=== PATIENT | female | born 2000 | race Caucasian/White ===

== ENCOUNTER 2023-08-20 12:03 | Outpatient (CLI) | payer OTHER, SELFPAY ==
[2023-08-20 12:16] LABS: Basophils Absolute Auto 0.03 K/mm3 (0.00-0.10); Basophils Percent Auto 0.5 % (0.0-1.0); Eosinophils Absolute Auto 0.07 K/mm3 (0.02-0.50); Eosinophils Percent Auto 1.2 % (1.0-6.0); Hematocrit 41.2 % (35.0-49.0); Hemoglobin 13.2 g/dL (12.0-15.0); Immature Granulocyte Absolute 0.01 K/mm3 (0.00-0.00); Immature Granulocyte Percent A 0.2 % (0.0-0.0); Lymphocytes Absolute Auto 2.19 K/mm3 (1.10-4.50); Mean Corpuscular Hemoglobin 29.8 pg (27.0-31.0); Mean Platelet Volume 10.2 fl (9.2-11.8); Monocytes Absolute Auto 0.47 K/mm3 (0.10-0.90); Monocytes Percent Auto 8.2 % (2.0-11.0); Neutrophils Percent Auto 51.9 % (50.0-70.0); Platelet Count Result 222 K/mm3 (150-420); Red Blood Count 4.43 M/mm3 (4.20-5.40); Red Cell Distribution Width 12.6 % (11.6-14.4); White Blood Count 5.8 K/mm3 (4.8-10.8)
[2023-08-20 12:58] LABS: Alanine Aminotransferase 22 U/L (14-59); Albumin Level 3.7 g/dL (3.4-5.0); Alkaline Phosphatase 54 U/L (46-116); Anion Gap 6 mmol/L (8-16); Aspartate Amino Transferase 16 U/L (15-37); Bilirubin,Total 0.3 mg/dL (0.00-1.00); Blood Urea Nitrogen 12 mg/dL (7-18); Calcium 8.9 mg/dL (8.5-10.1); Carbon Dioxide 31 mmol/L (21-32); Chloride 106 mmol/L (98-108); Estimated Glomerular Filt Rate > 60; Glucose 84 mg/dL (70-99); Lipase 26 U/L (16-77); Osmolality Calculated 294 mOsm/kg (285-295); Potassium 4.5 mmol/L (3.5-5.1); Sodium 143 mmol/L (136-145); Total Protein 6.9 g/dL (6.4-8.2)
[2023-08-20 13:01] LABS: CRP < 0.5 mg/dL (0.0-0.9)
== END 2023-08-20 12:04 | disposition home or self-care (01) ==
PROVIDERS: PCP Nurse Practitioner Family; Visit Provider Family Medicine
DX: R10.9 Unspecified abdominal pain (principal); R10.13 Epigastric pain
CPT/HCPCS: 36415; 80053; 83690; 85025; 86140

== ENCOUNTER 2025-01-29 10:30 | Outpatient (CLI) | payer OTHER, SELFPAY ==
[2025-01-29 10:50] LABS: Hematocrit 42.6 % (35.0-49.0); Hemoglobin 13.9 g/dL (12.0-15.0); Immature Granulocyte Percent A 0.3 % (0.0-0.0); Lymphocytes Absolute Auto 1.73 K/mm3 (1.10-4.50); Mean Corpuscular HGB Conc 32.6 g/dL (32-36); Mean Corpuscular Hemoglobin 29.5 pg (27.0-31.0); Mean Corpuscular Volume 90.4 fL (78.0-102.0); Nucleated Red Blood Cells Absolute Auto 0.00 K/mm3 (0.00-0.00); Nucleated Red Blood Cells Perc 0.0 % (0-0.0); Platelet Count Result 237 K/mm3 (150-420); Red Blood Count 4.71 M/mm3 (4.20-5.40); White Blood Count 6.9 K/mm3 (4.8-10.8)
--- OUTSIDE RECORDS SUMMARY | 2025-01-29 11:02 | XMS_ITS | Clinical Summary ---
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 Gender Identity Not on file Sexual Orientation Not on file Last Filed Vital Signs Vital Sign Reading Time Taken Comments Blood Pressure 130/85 03/16/2022 1:31 PM CDT Pulse 79 03/16/2022 1:31 PM CDT Temperature 37.3 C (99.1 F) 03/16/2022 1:31 PM CDT Respiratory Rate 18 03/16/2022 1:31 PM CDT Oxygen Saturation 99% 03/16/2022 1:31 PM CDT Inhaled Oxygen Concentration - - Weight 61.2 kg (135 lb) 03/16/2022 1:31 PM CDT Height 175.3 cm (5' 9) 03/16/2022 1:31 PM CDT Body Mass Index 19.94 03/16/2022 1:31 PM CDT Plan of Treatment Health Maintenance Due Date Last Done Comments CHLAMYDIA SCREENING (ANNUAL) 11-24 YEARS 2012 HPV VACCINES (1 - 3-dose series) 2016 DTAP/TDAP/TD VACCINES (1 - Tdap) 2020 HEPATITIS B VACCINES (1 of 3 - 19+ 3-dose series) 10/11 CERVICAL CANCER SCREENING 2022 HPV/Cotest (21-29) 2022 PAP SMEAR 2022 INFLUENZA VACCINE (#1) 2025 Insurance [facility] CHOICE PLUS
[2025-01-29 11:46] LABS: Alanine Aminotransferase 11 U/L (6-35); Albumin Level 4.7 g/dL (3.5-5.1); Alkaline Phosphatase 50 U/L (38-126); Anion Gap 6 mmol/L (4-12); Aspartate Amino Transferase 21 U/L (14-36); Bilirubin,Total 0.5 mg/dL (0.2-1.3); Blood Urea Nitrogen 13 mg/dL (7-17); Calcium 9.9 mg/dL (8.4-10.2); Carbon Dioxide 29 mmol/L (22-30); Chloride 105 mmol/L (98-107); Estimated Glomerular Filt Rate > 60; Glucose 88 mg/dL (65-110); Osmolality Calculated 289 mOsm/kg (285-295); Potassium 4.1 mmol/L (3.4-5.0); Sodium 140 mmol/L (137-145); Total Protein 7.6 g/dL (6.3-8.2)
[2025-01-29 12:16] LABS: Thyroid Stimulating Hormone Reflex 2.200 uIU/mL (0.465-4.68)
[2025-01-30 07:09] LABS: LH 0.9 mIU/mL (.)
[2025-01-30 10:09] LABS: FSH 0.9 mIU/mL (.)
== END 2025-01-29 10:31 | disposition home or self-care (01) ==
PROVIDERS: PCP Nurse Practitioner Family; Visit Provider Nurse Practitioner Family
DX: Z00.00 Encounter for general adult medical examination without abnormal findings (principal); Z78.9 Other specified health status; D24.9 Benign neoplasm of unspecified breast
CPT/HCPCS: 36415; 80053; 83001; 83002; 84443; 85025

== ENCOUNTER 2025-02-05 07:48 | Outpatient (CLI) | payer OTHER, SELFPAY ==
--- NOTE | ~2025-02-05 | US_ITS ---
US breast RT complete 02/05/2025 08:06 Indication: Palpable right breast lump Procedure: High-resolution complete ultrasound of the right breast including all 4 quadrants in the subareolar location Comparison: No prior studies for comparison. Findings: At 12:00, 3 cm from the nipple there is an irregular shaped hypoechoic mass which is wider than tall measuring 3.4 x 2.1 x 2.5 cm. No internal vascularity or significant posterior features. At 2:00 near the nipple there is an oval hypoechoic 7 mm mass with circumscribed margins, parallel orientation, no internal vascularity and no posterior features, likely benign. Impression: 1: Irregular shaped right breast mass located at 12:00, 3 cm from the nipple measuring 3.4 cm. Recommend correlation with diagnostic mammogram. Probable benign mass at 2:00 near the nipple. BI-RADS CATEGORY 0 - INCOMPLETE STUDY, NEED ADDITIONAL IMAGING EVALUATION. Reviewed, dictated and finalized at location O. Impression: 1: Irregular shaped right breast mass located at 12:00, 3 cm from the nipple me asuring 3.4 cm. Recommend correlation with diagnostic mammogram. Probable benig n mass at 2:00 near the nipple. BI-RADS CATEGORY 0 - INCOMPLETE STUDY, NEED ADDITIONAL IMAGING EVALUATION.
--- OUTSIDE RECORDS SUMMARY | 2025-02-05 07:52 | XMS_ITS | Clinical Summary ---
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
== END 2025-02-05 07:49 | disposition home or self-care (01) ==
LOC: CHSIMG 07:49
PROVIDERS: PCP Family Medicine; Visit Provider Nurse Practitioner Family
DX: N63.12 Unspecified lump in the right breast, upper inner quadrant (principal); R92.8 Other abnormal and inconclusive findings on diagnostic imaging of breast
CPT/HCPCS: 76641

== ENCOUNTER 2025-04-26 00:41 | Day surgery (SDC) | payer OTHER, SELFPAY ==
--- NOTE | 2025-04-12 13:14 | SUR.PREOP ---
[facility] has started construction of its new state of the art ER which will open Spring 2026. With this, we anticipate parking may be a challenge for some our surgical patients and families. Parking spaces are limited but are available for all Surgical, obstetrics, and ER patients sharing this lot. If you arrive and find you are having a hard time finding a parking space, please note that we understand the challenges, please drive around the hospital and park near Hospital Entrance 1. When you enter this entrance, you can ask a volunteer to direct or take you back to the surgical waiting area to check in. We appreciate everyone?s understanding of these expected challenges while we build for your future. Report to the Outpatient Waiting Room, entrance under the green pavilion located off [address], at time _10AM_ on date _04/26/25__. Planned Procedure Time: _12PM__.? Time changes happen often and if your time is changed the preop area will call you the afternoon before. - You and your visitor will be asked to self-screen and do not enter if you have any COVID symptoms. Please call surgeon if you need to reschedule. - A mask is optional within the hospital at this time. Patients may have clear liquids (water, carbonated beverages, clear teas, apple juice) until 3 hours prior to surgery with a maximum of 20 ounces. - No food from midnight until time of surgery and no smoking, or chewing tobacco (or any form of nicotine). No chewing gum, candy or mints. Take only the following medications with a SIP of water on the morning of surgery: __None__ DO NOT STOP ANY OF YOUR OTHER PRESCRIPTION MEDICATIONS PRIOR TO SURGERY EXCEPT THE FOLLOWING Hold all vitamins and supplements for 3 days per anesthesiologist. Medications to discontinue per physician __n/a__ Date to take last dose__n/a__ Please no make-up, nail azerbaijani, hairspray, perfume, deodorant, or body powder the day of surgery.? No jewelry (including any body piercings) or valuables the day of surgery, leave them at home.? Please take a shower or bath the night before, or the morning of, surgery with an antibacterial soap.? Wear comfortable, loose fitting clothing.? - Jewelry must be removed prior to entering the operating room.? Rings and piercings that are not removed may be cut off. - The hospital will not accept responsibility for valuables.? - Please leave all valuables, including medications, at home the day of surgery. If you are going home after surgery, a licensed shuttle truck driver must drive you home.? - NO public transportation without another adult if you receive anesthesia. - We recommend that an adult stay with you for 24 hours following discharge. - We also recommend that you do not drive, make important decision, drink alcoholic beverages, or take any drugs that were not prescribed by your health care provider for at least 24 hours after your discharge time. Follow any additional instructions given to you from your surgeon. Telephone instructions given to __Annaston___and asked if any additional questions and then verbalized understanding. Patient advised to call surgeon office or pre surgery nurse liaison [phone] if any additional questions.
[2025-04-12 13:17] VITALS: BMI 22.1
--- OUTSIDE RECORDS SUMMARY | 2025-04-26 00:44 | XMS_ITS | Clinical Summary ---
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
[2025-04-26 10:05] VITALS: BP 124/91; PULSE 73; RESP 16; TEMP 36.8; O2SAT 100
[2025-04-26] MEDS: LACTATED RINGERS 1,000 ML 30 ML IV CONT (10:15)
[2025-04-26 10:39] VITALS: BMI 23.8
--- NOTE | 2025-04-26 11:07 | WPDANESEPPF ---
Anes - Initial Pre Proc Eval Procedure: Operation Date: 04/26/25 12:00 Proposed Procedures p Right Breast Lumpectomy - Abdirahman Grant DO Date/Time: 04/26/25 11:07 Surgeon: Abdirahman Grant DO Pre Op Diagnosis: Rt Breast Mass Patient Data Age: 24 Gender: F Height: 1.75 m Weight: 73.2 kg Last Vital Signs Temp 36.8 C 04/26/25 10:05 Pulse 73 04/26/25 10:05 Resp 16 04/26/25 10:05 BP 124/91 H 04/26/25 10:05 Pulse Ox 100 04/26/25 10:05 O2 Del Method Room Air 04/26/25 10:05 Allergies Allergy/AdvReac Type Severity Reaction Status Date / Time No Known Allergies Allergy Verified 04/26/25 10:37 Home Medications ?Medication ?Instructions ?Recorded ?Confirmed ?Type norgestimate 0.25 mg-ethinyl 1 tablet PO DAILY 04/12/25 04/12/25 History estradiol 0.035 mg tablet (Estarylla) Patient hx anesthesia problems: none Family hx anesthesia problems: none Results Review: All pre-operative results and documents have been reviewed as part of the pre-operative evaluation. [facility] Surgical History Surgical History History of breast lump/mass excision L breast mass - fibroadenoma 2017 Family History Family History Sibling Diabetes mellitus Social History Social History Years smoked: 2 Smoking status: Former smoker Tobacco type: e-cigarettes/vaping Alcohol intake: current Drinks per week: 7 Alcohol use details: 20/month Substance use: never Do You Feel Safe in your Home?: Yes Lack of Transportation: No Lack of Food: Never True Current Housing: I Have Housing Concerned About Future Housing: No Difficulty Paying Gas/Electric Bills: No Difficulty Paying for Meds: No Currently Unemployed: No Education: Bachelor's Degree Difficulty w/ Childcare or Family Care: No Living arrangements: with friend(s) Occupation/Education: occupation Additional occupation/education comments: F/T Soft surroundings Spiritual care concerns: No Anes - Eval Final PreProcedure Day of Procedure 04/26/25 11:07 Patient weight: normal Heart: regular rate and rhythm Lungs: clear to auscultation Airway: Mallampati scale class II Neurological: alert and oriented Last oral intake: >/= 8 hours ASA classification: I Emergent: no Anesthetic plan: proceed Anesthesia type and monitoring: general GIVS and standard monitoring Results Review: All pre-operative results and documents have been reviewed as part of the pre-operative evaluation. Informed Consent: The patient's anesthetic plan and its attendant risks and benefits were discussed with the patient/family/POA. Questions were solicited and answers provided to the satisfaction of the patient/family/POA.
--- NOTE | 2025-04-26 11:42 | WPDHPUPDATE1 ---
History and Physical Update Update Date/Time: 04/26/25 11:42 History and Physical has been reviewed, including an updated exam of the patient. There are NO changes in the patient's condition. Risks, benefits, and alternatives have been discussed and questions answered. Patient agrees to proceed with procedure.
--- NOTE | 2025-04-26 11:42 | PM.IMHP ---
H&P: HPI History of Present Illness Date/Time: 04/26/25 11:42 Chief Complaint: right breast mass Narrative: 24 yo woman presents for excision of right breast mass. She denies any changes since last seen in office. Review of Systems Review of Systems: All systems reviewed & are unremarkable except as noted in HPI and below Constitutional: Constitutional: Denies chills, Denies fever(s), Denies headache(s) and Denies weight loss Eyes: Eyes: Denies change in vision ENT: Denies dizziness, Denies headache(s), Denies neck mass and Denies throat swelling Cardiovascular: Cardiovascular: Denies chest pain, Denies lightheadedness and Denies dyspnea Respiratory: Respiratory: Denies cough, Denies dyspnea and Denies wheezing Gastrointestinal: Gastrointestinal: Denies abdominal pain, Denies change in bowel habits, Denies nausea and Denies vomiting Genitourinary: Genitourinary: Denies hematuria and Denies dysuria Musculoskeletal: Musculoskeletal: Reports as per HPI Integumentary/Breasts: Skin/Breast: Reports as per HPI Neurologic: Denies dizziness and Denies headache(s) Allergic/Immunologic: Allergic/Immunologic: Denies throat swelling and Denies wheezing [facility] Surgical History Surgical History History of breast lump/mass excision L breast mass - fibroadenoma 2017 Family History Family History Sibling Diabetes mellitus Social History Social History Years smoked: 2 Smoking status: Former smoker Tobacco type: e-cigarettes/vaping Alcohol intake: current Drinks per week: 7 Alcohol use details: 20/month Substance use: never Do You Feel Safe in your Home?: Yes Lack of Transportation: No Lack of Food: Never True Current Housing: I Have Housing Concerned About Future Housing: No Difficulty Paying Gas/Electric Bills: No Difficulty Paying for Meds: No Currently Unemployed: No Education: Bachelor's Degree Difficulty w/ Childcare or Family Care: No Living arrangements: with friend(s) Occupation/Education: occupation Additional occupation/education comments: F/T Soft surroundings Spiritual care concerns: No Meds Home Medications and Allergies Home Medications ?Medication ?Instructions ?Recorded ?Confirmed ?Type norgestimate 0.25 mg-ethinyl 1 tablet PO DAILY 04/12/25 04/12/25 History estradiol 0.035 mg tablet (Estarylla) Allergies Allergy/AdvReac Type Severity Reaction Status Date / Time No Known Allergies Allergy Verified 04/26/25 10:37 Vital Signs Vital Signs - 24 hr 04/26/25 10:05 Temperature 98.3 F Pulse Rate 73 Respiratory Rate 16 Blood Pressure 124/91 H Pulse Oximetry 100 Oxygen Delivery Room Air Exam Const: General: no acute distress and alert Orientation/consciousness: patient oriented x3 HENMT: Head: normocephalic and atraumatic Ears: hearing grossly normal bilaterally Face/Nose/Sinus: Normal nares present Mouth: Yes Normal oral and palatal mucosa present Eyes: Periorbital: periorbital findings normal Sclera: sclerae normal EOM: EOMs intact bilaterally Neck: Neck: normal visual inspection, no lymphadenopathy and trachea midline Chest: Chest palpation & inspection: normal inspection of the chest Other: 4cm right breast mass consistent with fibroadenoma. Resp: Effort & Inspection: normal respiratory effort Auscultation: clear to auscultation bilaterally Cardio: Jugular venous distension: no JVD Rate: regular rate Rhythm: regular rhythm Heart sounds: S1 normal heart sound present and S2 normal heart sound present Peripheral pulses: Peripheral pulses 2+ throughout GI: Inspection: normal to inspection GI Palp: Yes Soft to palpation, No Tenderness to palpation present (GI), No Guarding due to palpation present (GI) and No Rebound tenderness present Percussion: Yes normal to percussion Auscultation: normal bowel sounds : General: Yes no CVA tenderness Back/Spine/Pelvis: Back: no CVA tenderness Neuro: General: patient oriented x3, no focal motor deficits and CN's II-XI intact bilaterally Cognition (Neuro): normal cognition Speech: normal speech Motor exam (neuro): 5/5 motor strength present throughout Extrem: General: capillary refill normal and no clubbing, cyanosis or edema
[2025-04-26 11:48] LABS: BEDSIDEPREGUCG Negative (Negative)
[2025-04-26] MEDS: SCOPOLAMINE 1 MG PATCH 1 PATCH TRANSDERM (11:49)
[2025-04-26] MEDS: BUPIVACAINE/EPINEPHRINE 0.5% 50 ML VIAL 20 ML INFILTRATE (12:17)
--- NOTE | 2025-04-26 12:22 | WNDPHOTO ---
PHOTO ONLY - See Nursing Notes and/ or assessments for documentation.
--- NOTE | 2025-04-26 12:38 | S_PTH ---
PATIENT: Sarabjit Wang LOC: [facility] U#:[id number] AGE/SX: 24/F ROOM: RE04/26/[address]: Abdirahman Grant DO : 2000 BED: DIS: 04/26/2025 SPEC #: [id number] RECD: 04/26/25 12:59 STATUS: FERMIN REQ #: [id number] MATTHEW: 04/26/25 12:[address]: Abdirahman Grant DEPT: [facility] Surgical RECD BY: Yessica Colon ENTERED: 04/26/25 12:59 SP TYPE: Surgical OTHR DR: Keny Ruth APRN Tissues: A - Breast Lumpectomy Procedures: Hematoxylin and Eosin Stain Gross and Microscopic Level 5
--- NOTE | 2025-04-26 12:44 | SUR.OPER ---
right breast mass excision time 1228 transported to pathology via [facility] at 1238 handed specimen to Alethea in pathology at 1243
--- NOTE | 2025-04-26 12:51 | P.OP_ITS ---
Procedure Note - Detailed Date of Procedure 04/26/25 Pre-op Diagnosis Rt Breast Mass Post-op Diagnosis Same Procedure Performed Right breast lumpectomy Surgeon Abdirahman Grant, DO Anesthesia MAC and Local (0.5% bupivacaine with epinephrine) Indications This is a 24-year-old woman who presented with a right breast lump that had gotten slightly larger and was causing discomfort. She had previous imaging that demonstrated a mass near 12 o'clock to 2 o'clock position on her right breast that had findings consistent with a fibroadenoma. She continues to have discomfort with this and further discussions were made with the patient about treatment options. Decision was made to proceed with right breast lumpectomy. Findings Right breast lumpectomy was performed. The mass was identified essentially in the 12 o'clock position about 3 cm from the nipple. The mass was completely excised and sent to the lab for pathology. The patient was noted to have dense breast tissue but no other abnormalities were noted. Description of Procedure Procedure as well as risks, benefits, and alternatives were discussed with the patient. Written consent was obtained and placed in chart prior to procedure. Patient was brought back to surgical suite. She was placed supine on operating table. Time-out was done to confirm patient and procedure. She was placed under IV sedation by the anesthesia department. Her right breast area was prepped and draped in sterile fashion using chlorhexidine prep. 0.5% bupivacaine with epinephrine was infiltrated locally around the right breast lump. A 3 cm curvilinear incision was then made in the upper periareolar region using a 15 blade scalpel. Electrocautery was used for hemostasis and for dissection through the subcutaneous tissue. I then continued the dissection ce phalad until reaching the mass. Mass within the breast tissue was then carefully dissected free from the surrounding breast tissue using electrocautery. The mass was completely excised and then sent to the lab for pathology. The wound bed was then inspected. Hemostasis was achieved with electrocautery. We carefully palpated the remainder of the breast tissue and no other isolated masses were identified. The area was irrigated with sterile saline. No other abnormalities were noted. Silvana's fascia was then reapproximated using 3-0 Vicryl simple interrupted sutures. The skin was then reapproximated using 4-0 Monocryl running subcuticular suture. Exofin glue was then applied on top. Patient was then awakened from anesthesia and transferred to recovery. Estimated Blood Loss 5 Pathology Yes (Right breast mass) Complications No immediate complications Condition Stable Disposition Same day [facility] Billing Surgery - Charge Forward: Surgery Billing
[2025-04-26 12:55] VITALS: BP 106/66; PULSE 57; RESP 14; O2SAT 100
[2025-04-26 13:25] VITALS: BP 118/69; PULSE 55; RESP 20
[2025-04-26 13:50] VITALS: BP 118/69; PULSE 52; RESP 20
== END 2025-04-26 13:55 | disposition home or self-care (01) ==
PROVIDERS: PCP Nurse Practitioner Family; Visit Provider Surgery
PROC: (CPT 19301; principal; 2025-04-26 12:00)
DX: D24.1 Benign neoplasm of right breast (principal); Z87.891 Personal history of nicotine dependence
CPT/HCPCS: 19301; 88307; A9270; J2003; J2250; J2704; J3010; J7120